=== PATIENT | female | born 1950 | race Caucasian/White ===

== ENCOUNTER → 2023-05-07 18:30 | Outpatient (REF) | payer OTHER, SELFPAY | LOC: WDC 18:30 | PROVIDERS: ATTENDING PHYSICIAN Internal Medicine | DX: Z12.31 Encounter for screening mammogram for malignant neoplasm of breast (principal) | CPT/HCPCS: 77063; 77067 ==

== ENCOUNTER → 2024-04-26 10:23 | Outpatient (REF) | payer OTHER, SELFPAY | LOC: RAD 10:23 | PROVIDERS: ATTENDING PHYSICIAN Physician Assistant; FAMILY PHYSICIAN Internal Medicine | DX: R05.1 Acute cough (principal); R50.9 Fever, unspecified | CPT/HCPCS: 71046 ==

== ENCOUNTER → 2024-05-06 10:05 | Outpatient (REF) | payer OTHER, SELFPAY | LOC: RAD 10:05 | PROVIDERS: ATTENDING PHYSICIAN Physician Assistant; FAMILY PHYSICIAN Internal Medicine | DX: J18.9 Pneumonia, unspecified organism (principal) | CPT/HCPCS: 71046 ==

== ENCOUNTER → 2024-05-12 18:24 | Outpatient (REF) | payer OTHER, SELFPAY | LOC: WDC 18:24 | PROVIDERS: ATTENDING PHYSICIAN Internal Medicine | DX: Z12.31 Encounter for screening mammogram for malignant neoplasm of breast (principal) | CPT/HCPCS: 77063; 77067 ==

== ENCOUNTER → 2024-10-01 08:12 | Outpatient (REF) | payer OTHER, SELFPAY | LOC: RAD 08:12 | PROVIDERS: ATTENDING PHYSICIAN Internal Medicine Hematology & Oncology; FAMILY PHYSICIAN Internal Medicine | DX: C50.912 Malignant neoplasm of unspecified site of left female breast (principal); M81.0 Age-related osteoporosis without current pathological fracture | CPT/HCPCS: 77080 ==

== ENCOUNTER 2025-02-09 07:17 | Outpatient (RCR) | payer OTHER, SELFPAY | END 2025-02-09 23:59 | disposition home or self-care (01) | LOC: RPT 07:17 | PROVIDERS: ATTENDING PHYSICIAN Internal Medicine Hematology & Oncology; FAMILY PHYSICIAN Internal Medicine | DX: C50.912 Malignant neoplasm of unspecified site of left female breast (principal); Z73.6 Limitation of activities due to disability; M62.81 Muscle weakness (generalized); Z79.811 Long term (current) use of aromatase inhibitors; M81.0 Age-related osteoporosis without current pathological fracture; M54.9 Dorsalgia, unspecified | CPT/HCPCS: 97110; 97112; 97140; 97162; 97530 ==